=== PATIENT | male | born 1965 | race Caucasian/White ===

== ENCOUNTER 2017-05-29 18:14 | Emergency (ER) | payer BC ==
[2017-05-29] MEDS ORDERED: Tetan/Diph/Pertus SYR(Tdap)* 0.5 ML SYR(BOOSTRIX) use SYR IM ONE (18:58)
[2017-05-29] MEDS ORDERED: Lidocaine 1% MPF* 2 ML VIAL INJ ONE (18:58)
--- NOTE | 2017-05-29 18:59 | UC ---
Laceration HPI - HPI Summary HPI Summary: PATIENT WAS SEEN BY CHERIE. - History Of Current Complaint Stated Complaint: FINGER LAC Time Seen by Provider: 05/29/17 18:56 - Allergies/Home Medications Allergies/Adverse Reactions: Allergies Allergy/AdvReac Type Severity Reaction Status Date / Time No Known Allergies Allergy Verified 05/29/17 19:14 Review of Systems Constitutional: Negative Skin: Other - FINGER LACERATION Eyes: Negative ENT: Negative Respiratory: Negative Cardiovascular: Negative Gastrointestinal: Negative Genitourinary: Negative Motor: Negative Neurovascular: Negative Musculoskeletal: Negative Neurological: Negative Psychological: Negative All Other Systems Reviewed And Are Negative: Yes Physical Exam Triage Information Reviewed: Yes Eye Exam: Normal ENT Exam: Normal Dental Exam: Normal Neck exam: Normal Neck: Positive: 1 Respiratory Exam: Normal Cardiovascular Exam: Normal Abdominal Exam: Normal Musculoskeletal Exam: Normal Neurological Exam: Normal Psychological Exam: Normal Skin: Positive: Other - FINGER LACERATION Laceration Course/Dx - Differential Dx - Laceration/Wound Provider Diagnoses: FINGER LACERATION Discharge - Discharge Plan Condition: Stable Disposition: HOME Prescriptions: Sulfamethox/Trimethoprim DS* [Bactrim DS 800/160 TAB*] 1 tab PO BID #14 tab Patient Education Materials: Care For Your Stitches (ED), Finger Laceration (ED ), Low Sodium Diet (ED) Referrals: [facility] [place] [facility] [Outside] Additional Instructions: Please take full course of antibiotic to avoid resistance. Keep wound clean and dry and avoid excessive movement w/ your finger. F/u suture removal in 10 days w/ your PCP or here at the urgent care. Take Ibuprofen or Tylenol PO q6-8hrs prn for pain or swelling. If you develop fever or redness around your finger despite the antibiotic please go to the Er immediately or return to the Urgent care. 2- Your BP is elevated today please decrease salt in your diet and f/u with your PCP for further evaluation and treatment.
--- NOTE | 2017-05-29 19:03 | UC ---
Upper Extremity HPI - History of Current Complaint Stated Complaint: FINGER LAC Time Seen by Provider: 05/29/17 18:56 Discharge - Discharge Plan Condition: Stable Disposition: HOME Prescriptions: Sulfamethox/Trimethoprim DS* [Bactrim DS 800/160 TAB*] 1 tab PO BID #14 tab
[2017-05-29 19:19] VITALS: BP 142/97
--- NOTE | 2017-05-29 19:42 | UC ---
Laceration HPI - HPI Summary HPI Summary: 51 y/o male presents to the urgent care c/o laceration to his left index finger w/ a razor about 1 hr ago. Pt states bleeding stopped. Pain is 4/10 now w/o any radiation. Pt is not up to date w/ Tetanus vaccine. Pt denies numbness, tingling over the fingers, fever, SOB, chest pain, N/V/D. Pt has not other complains - History Of Current Complaint Stated Complaint: FINGER LAC Time Seen by Provider: 05/29/17 18:56 Hx Obtained From: Patient Laceration Location: Hand - LF index with laceration w/ a razor Mechanism Of Injury: Sharp Trauma Onset/Duration: Sudden Onset, Lasting Hours, Still Present Severity: Mild Pain Intensity: 4 Pain Scale Used: 0-10 Numeric Aggravating Factors: Movement Related History: Dominant Hand Right - Allergies/Home Medications Allergies/Adverse Reactions: Allergies Allergy/AdvReac Type Severity Reaction Status Date / Time No Known Allergies Allergy Verified 05/29/17 19:14 PMH/Surg Hx/FS Hx/Imm Hx Previously Healthy: Yes - Family History Known Family History: Positive: Diabetes Family History: Lung Cancer, Emphysema - Social History Occupation: Employed Full-time Lives: With Family Review of Systems Constitutional: Negative Skin: Other - LF index finger w/ laceration Eyes: Negative ENT: Negative Respiratory: Negative Cardiovascular: Negative Gastrointestinal: Negative Genitourinary: Negative Motor: Negative Neurovascular: Negative Musculoskeletal: Negative Neurological: Negative Psychological: Negative All Other Systems Reviewed And Are Negative: Yes Physical Exam Triage Information Reviewed: Yes Appearance: Well-Appearing, No Pain Distress, Well-Nourished Vital Signs Reviewed: Yes Eye Exam: Normal Eyes: Positive: Conjunctiva Clear - PERRLA, EOMI ENT Exam: Normal ENT: Positive: Normal ENT inspection, Hearing grossly normal, Pharynx normal, TMs normal Dental Exam: Normal Neck exam: Normal Neck: Positive: Supple, Nontender, No Lymphadenopathy Respiratory Exam: Normal Respiratory: Positive: Chest non-tender, Lungs clear, Normal breath sounds Cardiovascular Exam: Normal Cardiovascular: Positive: RRR, No Murmur, Pulses Normal Abdominal Exam: Normal Abdomen Description: Positive: Nontender, No Organomegaly, Soft. Negative: CVA Tenderness (R), CVA Tenderness (L) Bowel Sounds: Positive: Present Musculoskeletal Exam: Normal Neurological Exam: Normal Psychological Exam: Normal Skin: Positive: significant lesion(s) - LF # 2 phalax w/ a superficial linear laceration at the tip of phalax about 1.2cm in size, mildly tender to palpation. FROM of phalanx w/ sensation, capillary refill and pulses WNL. Laceration Repair - Laceration Repair 1 Description: Linear Laceration Size After Repair: Length (cm) - 1.2cm Modified For Repair: No Type Injection: Local Anesthesia Used: 2.0% Lido - 2 ml Cleansing Completed Via Routine Prep: Yes Irrigation With Pressure Irrigation Device: Yes Closure Material: Sutures - 5.0 Closure Method: Single Layer Suture Of: Skin Suture Type: Nylon Laceration Course/Dx - Course/Dx Course Of Treatment: 51 y/o male presents to the urgent care c/o laceration to his left index finger w/ a razor about 1 hr ago. Pt states bleeding stopped. Pain is 4/10 now w/o any radiation. Pt is not up to date w/ Tetanus vaccine. Pt denies numbness or tingling over his fingers,fever, SOB, chest pain, N/V/D. Hx obtained. PE abnormal findings:LF # 2 phalax w/ a superficial linear laceration at the tip of phalax about 1.2cm in size, mildly tender to palpation. FROM of phalanx w/ sensation, capillary refill and pulses WNL. LACERATION PROCEDURE NOTE: . Copious irrigation was done with saline by the nurse and the wound explored. There was no FB or deep structure injury noted. FROM of left forearm and fingers. procedure was explained and consent obtained, Timeout performed. The wound was anesthetized with 2 mL of 2% lido with good anesthesia. Sterile drape and prep were done. There were 3 sutures with 5.0 nylon type of suture. The length of the wound after closure was 1.0cm. No debridement done. Wound was covered w/ bacitracin with sterile nonadherent dressing. The Pt tolerated the procedure well without adverse effects. Neurovascular intact and FROM. Tdap ordered and applied by nurse. Pt advised to f/u suture removal in 10 days. Pt Rx Bactrim PO and if any signs of infection develop to immediately return to the urgent care of PCP for further management and treatment. Pt understood and agreed and left the clinic ambulating A&Ox3. Dr Zee agreed w/ Pt's care and treatment. - Differential Dx - Laceration/Wound Differental Diagnoses: Avulsion, Cellulitis, Laceration, Puncture Wound, Tendon Laceration Provider Diagnoses: 1-Distal Laceration of the LF #2 phalax Discharge - Discharge Plan Condition: Stable Disposition: HOME Prescriptions: Sulfamethox/Trimethoprim DS* [Bactrim DS 800/160 TAB*] 1 tab PO BID #14 tab Patient Education Materials: Care For Your Stitches (ED), Finger Laceration (ED ), Low Sodium Diet (ED) Referrals: [facility] [place] [facility] [Outside] Additional Instructions: Please take full course of antibiotic to avoid resistance. Keep wound clean and dry and avoid excessive movement w/ your finger. F/u suture removal in 10 days w/ your PCP or here at the urgent care. Take Ibuprofen or Tylenol PO q6-8hrs prn for pain or swelling. If you develop fever or redness around your finger despite the antibiotic please go to the Er immediately or return to the Urgent care. 2- Your BP is elevated today please decrease salt in your diet and f/u with your PCP for further evaluation and treatment.
== END 2017-05-29 19:50 | disposition home or self-care (01) ==
LOC: UCEAST 18:14
DX: S61.211A Laceration without foreign body of left index finger without damage to nail, initial encounter (principal); W45.8XXA Other foreign body or object entering through skin, initial encounter; Y93.9 Activity, unspecified; Y92.9 Unspecified place or not applicable; Y99.9 Unspecified external cause status
CPT/HCPCS: 12001; 12041; 90472; 90715; 99201; G0463